=== PATIENT | male | born 1980 | race African-American/Black ===

== ENCOUNTER 2017-08-04 10:42 | Emergency (ER) | payer SELFPAY ==
[~2017-08-04] VITALS: Ht 185.4 cm; Wt 75.7 kg
[~2017-08-04 10:42] MED LIST: NAPROXEN500 MG PO
[2017-08-04 11:00] VITALS: BP 117/49
[2017-08-04] MEDS ORDERED: MOTRIN600 MG PO (13:22)
== END 2017-08-04 13:38 | disposition home or self-care (01) ==
LOC: EME 10:42
DX: S63.91XA Sprain of unspecified part of right wrist and hand, initial encounter (principal); W22.8XXA Striking against or struck by other objects, initial encounter; Z88.1 Allergy status to other antibiotic agents
CPT/HCPCS: 73110; 73130; 99281; 99284